=== PATIENT | male | born 1950 | race Caucasian/White ===

== ENCOUNTER 2017-08-11 22:38 | Emergency (ER) | payer BC ==
[2017-08-11] MEDS ORDERED: Acetaminophen/HYDROcodone 325-5 MG Tab PO ONE (23:08)
--- NOTE | 2017-08-12 00:24 | EDM.PDOC ---
ED HPI GENERAL MEDICAL PROBLEM - General Chief Complaint: Chest Pain Stated Complaint: CHEST PAIN Time Seen by Provider: 08/11/17 22:56 Source of Information: Reports: Patient History Limitations: Reports: No Limitations - History of Present Illness INITIAL COMMENTS - FREE TEXT/NARRATIVE: The patient states that he developed left axillary chest pain around 22:00 tonight. He is unable to describe its character, other than it is a gnawing pain. It has gradually been getting worse. He states that he feels better if he raises his left upper extremity up above his head, and it feels better if he takes a deep breath. When I had him lower his arm, the pain was not present, but it did recur after a minute or so. There is no associated nausea, dyspnea, diaphoresis, or sense of impending doom. No recent leg swelling. The patient is unsure if he had similar symptoms about 6 months ago, but states that if he did, it resolved, and he did not seek medical attention. The patient states that he has polymyalgia rheumatica, currently being treated with prednisone. The patient's PCP is in [place]. left upper anterior chest Pain Score (Numeric/FACES): 8 - Related Data Allergies Allergy/AdvReac Type Severity Reaction Status Date / Time No Known Allergies Allergy Verified 08/11/17 22:47 Home Meds: Home Meds Cholesterol Pill 1 tab PO DAILY 08/11/17 [History] predniSONE [Prednisone] 8 mg PO DAILY 08/11/17 [History] Orphenadrine [Norflex] 1 tab PO Q12H PRN #10 tab.er 08/12/17 [Rx] Past Medical History HEENT History: Reports: Impaired Vision, Retinal Detachment (right) Cardiovascular History: Reports: High Cholesterol Musculoskeletal History: Reports: Other (See Below) (Polymyalgia rheumatica) - Past Surgical History HEENT Surgical History: Reports: Detached Retina (right) Social & Family History - Family History Family Medical History: Noncontributory - Tobacco Use Smoking Status *Q: Never Smoker Second Hand Smoke Exposure: No - Caffeine Use Caffeine Use: Reports: Coffee - Alcohol Use Alcohol Use History: Yes Alcohol Use Frequency: Socially - Recreational Drug Use Recreational Drug Use: No - Living Situation & Occupation Living situation: Reports: , with Spouse Occupation: Employed ([employer]) ED ROS GENERAL - Review of Systems Review Of Systems: ROS reveals no pertinent complaints other than HPI. ED EXAM, GENERAL - Physical Exam Exam: See Below Exam Limited By: No Limitations General Appearance: Alert, WD/WN, No Apparent Distress, Other (Keeps his LUE above his head) Eye Exam: Bilateral Eye: Normal Inspection Ears: Normal External Exam, Hearing Grossly Normal Nose: Normal Inspection, No Blood Throat/Mouth: Normal Inspection, Normal Lips, Normal Voice, No Airway Compromise Head: Atraumatic, Normocephalic Neck: Normal Inspection, Full Range of Motion Respiratory/Chest: No Respiratory Distress, Lungs Clear, Normal Breath Sounds, No Accessory Muscle Use, Chest Non-Tender (including the left axilla). No: Decreased Breath Sounds, Crackles, Rhonchi, Wheezing, Pleural Rub Cardiovascular: Normal Peripheral Pulses, Regular Rate, Rhythm, No Edema, No Gallop, No JVD, No Murmur, No Rub Peripheral Pulses: 4+: Radial (L), Radial (R) GI/Abdominal: Normal Bowel Sounds, Soft, Non-Tender, No Organomegaly, No Distention, No Abnormal Bruit, No Mass (Male) Exam: Deferred Rectal (Males) Exam: Deferred Back Exam: Normal Inspection, Full Range of Motion, NT Extremities: Normal Inspection, Normal Range of Motion, No Pedal Edema, Normal Capillary Refill Neurological: Alert, Oriented, Normal Cognition, No Motor/Sensory Deficits Psychiatric: Normal Affect Skin Exam: Warm, Dry, Intact, Normal Color, No Rash EKG INTERPRETATION EKG Date: 08/11/17 Time: 22:45 Rhythm: NSR Rate (Beats/Min): 75 [place]: Normal P-Wave: Present QRS: RBBB ST-T: Normal QT: Normal Comparison: NA - No Prior EKG Course - Vital Signs Last Recorded V/S: Last Vital Signs Temp 36.7 C 08/11/17 22:40 Pulse 71 08/11/17 22:40 Resp 18 08/11/17 22:40 BP 201/103 H 08/11/17 22:40 Pulse Ox 99 08/11/17 22:40 - Orders/Labs/Meds Orders: Active Orders 24 hr Category Date Time Status EKG Documentation Completion [RC] STAT Care 08/11/17 23:07 Active Chest 2V [CR] Stat Exams 08/11/17 23:07 Taken Labs: Laboratory Tests 08/11/17 08/11/1708/11/18 Range/Units 22:55 22:55 22:55 WBC 10.61 H (4.23-9.07) K/mm3 RBC 5.11 (4.63-6.08) M/mm3 Hgb 15.6 (13.7-17.5) gm/L Hct 46.6 (40.1-51.0) % MCV 91.2 (79.0-92.2) fl MCH 30.5 (25.7-32.2) pg MCHC 33.5 (32.2-35.5) g/dl RDW Std Deviation 46.6 H (35.1-43.9) fL Plt Count 257 (163-337) K/mm3 MPV 9.6 (9.4-12.3) fl Neutrophils % (Manual) 65 H (40-60) % Band Neutrophils % 0 (0-10) % Lymphocytes % (Manual) 26 (20-40) % Atypical Lymphs % 3 % Monocytes % (Manual) 1 L (2-10) % Eosinophils % (Manual) 3 (0.8-7.0) % Basophils % (Manual) 2 H (0.2-1.2) Toxic Granulation 1+ slight Dohle Bodies Platelet Estimate Adequate Plt Morphology Comment Normal RBC Morph Comment Normal PT 11.8 (9.5-12.1) SECONDS INR 1.08 APTT 26 (24-31) SECONDS D-Dimer, Quantitative 0.30 (0.19-0.50) mg/L Sodium 144 (136-145) mEq/L Potassium 4.1 (3.5-5.1) mEq/L Chloride 108 H (98-107) mEq/L Carbon Dioxide 30 (21-32) mEq/L Anion Gap 10.1 (5-15) BUN 25 H (7-18) mg/dL Creatinine 1.3 (0.7-1.3) mg/dL Est Cr Clr Drug Dosing 52.26 mL/min Estimated GFR (MDRD) 55 (>60) mL/min BUN/Creatinine Ratio 19.2 H (14-18) Glucose 109 (80-115) mg/dL Calcium 9.2 (8.5-10.1) mg/dL Total Bilirubin 0.5 (0.2-1.0) mg/dL AST 22 (15-37) U/L ALT 35 (16-63) U/L Alkaline Phosphatase 54 (46-116) U/L Troponin I < 0.017 (0.00-0.056) ng/mL Total Protein 7.3 (6.4-8.2) g/dl Albumin 4.0 (3.4-5.0) g/dl Globulin 3.3 gm/dL Albumin/Globulin Ratio 1.2 (1-2) Meds: Medications Discontinued Medications Generic Name Dose Route Start Last Admin Trade Name Basilio PRN Reason Stop Dose Admin Hydrocodone Bitart/Acetaminophen 2 tab 08/11/17 23:08 08/11/17 23:13 [place] 325-5 Mg PO 08/11/17 23:09 2 tab ONETIME ONE Administration Orphenadrine Citrate 100 mg 08/12/17 00:26 08/12/17 00:35 Norflex PO 08/12/17 00:27 100 mg ONETIME STA Administration - Re-Assessments/Exams Free Text/Narrative Re-Assessment/Exam: 08/11/17 23:28 2-view chest radiograph appears to be grossly normal. Cardiac silhouette is within normal limits. No pulmonary vascular congestion. No pleural effusions. No focal infiltrate. No pneumothorax. Formal read per the Radiologist pending. 08/12/17 00:25 Test results discussed with the patient, his , and 2 sons. Today's workup is entirely unremarkable, and does not explain the cause of his symptoms. Because his pain is made worse with various movements, including of his left upper extremity, I suspect that his pain is musculoskeletal in etiology. I explained that opioid pain medications are not the best choice for muscle spasm pain, as one of the side effects of opiates is itself muscle spasm. I would prefer to treat the patient with a muscle relaxant, such as Norflex, and have him take [id number] ibuprofen, however, since the patient is on prednisone for treatment of polymyalgia rheumatica, NSAIDs are relatively contraindicated. I am recommending therefore that the patient can take over-the- counter Tylenol. The patient states that he and his family will be heading back home to [facility], and be home within about 12 hours. I will give him a prescription for Norflex that he can fill back home, and if he is still symptomatic over the next couple of days, he can follow-up with his PCP in [place]. Departure - Departure Time of Disposition: 00:30 Disposition: Home, Self-Care 01 Condition: Good Clinical Impression: Muscular chest pain - Discharge Information Prescriptions: Orphenadrine [Norflex] 1 tab PO Q12H PRN #10 tab.er PRN Reason: Muscle Spasm Instructions: Chest Wall Pain, [id number] Referrals: PCP,Not In Area [Primary Care Provider] - Forms: ED Department Discharge Additional Instructions: You were seen in the emergency room for left sided chest pain. Workup in the ER included blood work, a chest x-ray, and an ECG. Your entire workup was unremarkable, and does not explain the cause of your pain , however, did rule out a number of emergency medical conditions, such as a heart attack, a blood clot in your lungs, a collapsed lung, and pneumonia. Based on your history and physical examination, the cause of your chest pain is MOST LIKELY musculoskeletal in etiology. You have been started on the muscle relaxant Norflex. A prescription for Norflex has been provided to you. Take one tablet every 12 hours, as prescribed. Ordinarily, we would recommend that you take ibuprofen in addition to Norflex, however, you should not take ibuprofen (or any other NSAID) while taking prednisone, therefore, in your case, we are recommending that you take Tylenol in addition to Norflex. If you are still having pain after 2 days, please follow-up with your PCP in [place]. - My Orders Last 24 Hours: My Active Orders 08/11/17 23:07 EKG Documentation Completion [RC] STAT Chest 2V [CR] Stat - Assessment/Plan Last 24 Hours: My Active Orders 08/11/17 23:07 EKG Documentation Completion [RC] STAT Chest 2V [CR] Stat
[2017-08-12] MEDS ORDERED: Ibuprofen 600 MG Tab PO ONE (00:26)
[2017-08-12] MEDS ORDERED: Orphenadrine 100 MG Tab.ER PO STA (00:26)
--- NOTE | 2017-08-12 08:17 | CR ---
Chest: Two views of the chest were obtained. Comparison: Prior chest x-ray is not available. Heart size is normal. Tortuous thoracic aorta is seen. Lungs are clear. Minimal degenerative change is scattered within the spine. Impression: 1. Nothing acute is seen. Diagnostic code #2
== END 2017-08-12 00:55 | disposition home or self-care (01) ==
LOC: JD.ED 22:38
DX: R07.89 Other chest pain (principal); E78.00 Pure hypercholesterolemia, unspecified; Z79.899 Other long term (current) drug therapy
CPT/HCPCS: 36415; 71046; 80053; 84484; 85007; 85027; 85379; 85610; 85730; 93005; 99285; A9270